=== PATIENT | male | born 1940 | race African-American/Black ===

== ENCOUNTER → 2016-09-25 | Outpatient (CLI) | payer MEDICARE, OTHER | LOC: RAD 14:44 | PROVIDERS: ATTEND Internal Medicine Nephrology | DX: I12.9 Hypertensive chronic kidney disease with stage 1 through stage 4 chronic kidney disease, or unspecified chronic kidney disease (principal); N18.2 Chronic kidney disease, stage 2 (mild); R80.9 Proteinuria, unspecified | CPT/HCPCS: 76770 ==

== ENCOUNTER 2017-03-28 16:26 | Emergency (ER) | payer MEDICARE, OTHER ==
--- NOTE | 2017-03-28 17:32 | RADIOLOGY REPORT (SQ) ---
EXAM DESCRIPTION: TIBIA FIBULA RIGHT COMPLETED DATE/TIME: 03/28/2017 5:21 pm REASON FOR STUDY: pain COMPARISON: None. NUMBER OF VIEWS: Two views. TECHNIQUE: Two radiographic images acquired of the right tibia and fibula to include the knee and an kle in at least one projection. LIMITATIONS: None. FINDINGS: MINERALIZATION: Normal. BONES: No acute fracture or dislocation. No worrisome bone lesions. SOFT TISSUES: There is soft tissue swelling at the ankle laterally. OTHER: There are degenerative changes in the knee. IMPRESSION: Soft tissue swelling laterally at the ankle. Degenerative changes in the knee. No acut e fracture. TECHNICAL DOCUMENTATION: JOB ID: [id number] [employer]- All Rights Reserved
--- NOTE | 2017-03-28 20:54 | ER Document Report ---
ED Medical Screen (RME) - General Chief Complaint: Leg Pain Stated Complaint: RIGHT LEG PAIN Time Seen by Provider: 03/28/17 17:06 Mode of Arrival: Ambulatory Information source: Patient Notes: Patient complains of right lower extremity pain. He states the pain is on the medial aspect of his right lower leg. He denies any injuries or trauma. He states the pain is constant. Nothing makes it better or worse. He denies any type of recent trauma. There is no change with movement. He denies any previous history of DVTs or blood clots. He has had no chest pain or shortness of breath. He has not appreciated any swelling. The pain does radiate up his right leg. It is a sharp pain. TRAVEL OUTSIDE OF THE [place] IN LAST 30 DAYS: No - Related Data Allergies/Adverse Reactions: No Known Allergies Allergy (Verified 03/28/17 16:43) Past Medical History - General Information source: Patient - Social History Frequency of alcohol use: None Drug Abuse: None Family history: Reviewed & Not Pertinent - Past Medical History Cardiac Medical History: Reports: Hx Hypercholesterolemia, Hx Hypertension - meds x 20-30 yrs Endocrine Medical History: Reports: Hx Diabetes Mellitus Type 2 Renal/ Medical History: Denies: Hx Peritoneal Dialysis GI Medical History: Musculoskeltal Medical History: Reports Hx Arthritis - gout only Psychiatric Medical History: Denies: Hx Depression Infectious Medical History: Past Surgical History: Reports: Other - Eye surgery x 2: Retina detachment and Stent for glaucoma - Immunizations Hx Diphtheria, Pertussis, Tetanus Vaccination: Yes Review of Systems - Review of Systems Constitutional: denies: Chills, Fever Cardiovascular: denies: Chest pain, Palpitations Respiratory: denies: Cough, Short of breath Gastrointestinal: denies: Diarrhea, Vomiting -: Yes All other systems reviewed and negative Physical Exam - Vital signs Vitals: Temp Pulse Resp BP Pulse Ox 97.8 F 55 L 20 135/82 H 93 03/28/17 16:43 03/28/17 16:43 03/28/17 16:43 03/28/17 16:43 03/28/17 16:43 Interpretation: Bradycardic - General General appearance: Appears well, Alert - HEENT Head: Normocephalic, Atraumatic Eyes: Normal Pupils: PERRL - Respiratory Respiratory status: No respiratory distress Chest status: Nontender Breath sounds: Normal Chest palpation: Normal - Cardiovascular Rhythm: Regular Heart sounds: Normal auscultation Murmur: No - Abdominal Inspection: Normal Distension: No distension Bowel sounds: Normal Tenderness: Nontender Organomegaly: No organomegaly - Back Back: Normal, Nontender - Extremities General upper extremity: Normal inspection, Nontender, Normal color, Normal ROM , Normal temperature General lower extremity: Normal inspection, Nontender, Normal color, Normal ROM , Normal temperature, Normal weight bearing. No: Henry's sign Notes: Right lower extremity exam is unremarkable. Inspection is unremarkable. Patient has no tenderness to palpation. There is no edema or swelling appreciated. Patient has good popliteal pulse on the right. Temperature is normal. - Neurological Neuro grossly intact: Yes Cognition: Normal Orientation: AAOx4 Dolores Coma Scale Eye Opening: Spontaneous Dolores Coma Scale Verbal: Oriented Dolores Coma Scale Motor: Obeys Commands Phoenix Coma Scale Total: 15 Speech: Normal Motor strength normal: LUE, RUE, LLE, RLE Sensory: Normal - Psychological Associated symptoms: Normal affect, Normal mood - Skin Skin Temperature: Warm Skin Moisture: Dry Skin Color: Normal Course - Vital Signs Vital signs: Temp Pulse Resp BP Pulse Ox 97.8 F 55 L 20 135/82 H 93 03/28/17 16:43 03/28/17 16:43 03/28/17 16:43 03/28/17 16:43 03/28/17 16:43 - Diagnostic Test Radiology reviewed: Image reviewed, Reports reviewed - Patient's x-ray has no evidence of fracture dislocation or lesion. Ultrasound at the time of this dictation is still pending.
--- NOTE | 2017-03-28 21:33 | RADIOLOGY REPORT (SQ) ---
EXAM DESCRIPTION: VENOUS UNILATERAL LOWER COMPLETED DATE/TIME: 03/28/2017 9:25 pm REASON FOR STUDY: pain COMPARISON: None. TECHNIQUE: Dynamic and static traore scale and color images acquired of the right leg venous system. S elected spectral images acquired with additional compression and augmentation maneuvers. The contrala teral common femoral vein and saphenofemoral junction were also imaged. Images stored on PACS. LIMITATIONS: None. FINDINGS: COMMON FEMORAL: Normal phasicity, compression and augmentation. No visualized echogenic ma terial on traore scale. No defects on color images. FEMORAL: Normal compression and augmentation. No visualized echogenic material on traore scale. No defe cts on color images. POPLITEAL: Normal compression, augmentation. No visualized echogenic material on traore scale. No defec ts on color images. CALF VESSELS: Normal compression, augmentation. No visualized echogenic material on traore scale. No de fects on color images. GSV and SSV: Normal compression, augmentation. No visualized echogenic material on traore scale. No def ects on color images. ANY DEEP VENOUS INSUFFICIENCY: Not evaluated. ANY EVIDENCE OF POPLITEAL CYST: No. OTHER: No other significant finding. CONTRALATERAL COMMON FEMORAL VEIN AND SAPHENOFEMORAL JUNCTION: Normal phasicity, compression and augmentation. No visualized echogenic material on traore scale. No de fects on color images. IMPRESSION: NO EVIDENCE DVT OR SVT IN THE RIGHT LEG. TECHNICAL DOCUMENTATION: JOB ID: [id number] [employer]- All Rights Reserved
[2017-03-28] MEDS ORDERED: LIDOCAINE 5% (700 MG) TRANSDERMAL ADH..PATCH TP ONE (21:40)
--- NOTE | 2017-03-28 21:48 | ER Document Report ---
ED General - General Chief Complaint: Leg Pain Stated Complaint: RIGHT LEG PAIN Time Seen by Provider: 03/28/17 17:06 Mode of Arrival: Ambulatory TRAVEL OUTSIDE OF THE [place] IN LAST 30 DAYS: No - HPI Patient complains to provider of: Right calf pain Notes: Patient coming in for right calf pain. Patient states ongoing for the past few days went to local urgent care for to the ER concern for possible DVT. Patient denies any recent travel denies history of DVT in the past. Patient states pain is more in the lateral side of his calf. Denies any recent trauma or new activity. Patient is resting comfortably upon my evaluation. - Related Data Allergies/Adverse Reactions: No Known Allergies Allergy (Verified 03/28/17 16:43) Past Medical History - General Information source: Patient - Social History Smoking Status: Former Smoker Frequency of alcohol use: None Drug Abuse: None Family History: Reviewed & Not Pertinent Patient has suicidal ideation: No Patient has homicidal ideation: No - Past Medical History Cardiac Medical History: Reports: Hx Hypercholesterolemia, Hx Hypertension - meds x 20-30 yrs Endocrine Medical History: Reports: Hx Diabetes Mellitus Type 2 Renal/ Medical History: Denies: Hx Peritoneal Dialysis GI Medical History: Musculoskeltal Medical History: Reports Hx Arthritis - gout only Psychiatric Medical History: Denies: Hx Depression Infectious Medical History: Past Surgical History: Reports: Other - Eye surgery x 2: Retina detachment and Stent for glaucoma - Immunizations Hx Diphtheria, Pertussis, Tetanus Vaccination: Yes Hx Pneumococcal Vaccination: 07/23/08 Review of Systems - Review of Systems Constitutional: No symptoms reported EENT: No symptoms reported Cardiovascular: No symptoms reported Respiratory: No symptoms reported Gastrointestinal: No symptoms reported Genitourinary: No symptoms reported Male Genitourinary: No symptoms reported Musculoskeletal: Other - Calf pain Skin: No symptoms reported Hematologic/Lymphatic: No symptoms reported Neurological/Psychological: No symptoms reported -: Yes All other systems reviewed and negative Physical Exam - Vital signs Vitals: Temp Pulse Resp BP Pulse Ox 97.8 F 55 L 20 135/82 H 93 03/28/17 16:43 03/28/17 16:43 03/28/17 16:43 03/28/17 16:43 03/28/17 16:43 Interpretation: Normal - General General appearance: Appears well, Alert - HEENT Head: Normocephalic, Atraumatic Eyes: Normal Pupils: PERRL - Respiratory Respiratory status: No respiratory distress Chest status: Nontender Breath sounds: Normal Chest palpation: Normal - Cardiovascular Rhythm: Regular Heart sounds: Normal auscultation Murmur: No - Abdominal Inspection: Normal Distension: No distension Bowel sounds: Normal Tenderness: Nontender Organomegaly: No organomegaly - Back Back: Normal, Nontender - Extremities General upper extremity: Normal inspection, Nontender, Normal color, Normal ROM , Normal temperature General lower extremity: Normal inspection, Nontender, Normal color, Normal ROM , Normal temperature, Normal weight bearing. No: Henry's sign - Neurological Neuro grossly intact: Yes Cognition: Normal Orientation: AAOx4 Dolores Coma Scale Eye Opening: Spontaneous Dolores Coma Scale Verbal: Oriented Dolores Coma Scale Motor: Obeys Commands Dolores Coma Scale Total: 15 Speech: Normal Motor strength normal: LUE, RUE, LLE, RLE Sensory: Normal - Psychological Associated symptoms: Normal affect, Normal mood - Skin Skin Temperature: Warm Skin Moisture: Dry Skin Color: Normal Course - Re-evaluation Re-evalutation: 03/28/17 23:31 X-ray and ultrasound are negative for DVT. Patient will be discharged home follow-up primary care physician. - Vital Signs Vital signs: Temp Pulse Resp BP Pulse Ox 97.8 F 56 L 18 169/68 H 95 03/28/17 16:43 03/28/17 22:13 03/28/17 22:13 03/28/17 22:13 03/28/17 22:13 Discharge - Discharge Clinical Impression: Right calf pain Condition: Good Disposition: HOME, SELF-CARE Instructions: Muscle Strain ([facility]) Additional Instructions: Your x-ray and venous Doppler today were negative for fracture or blood clot. He may try the Lidoderm patch for pain control also try Tylenol and Motrin. Follow-up with your primary care physician return to ER symptoms worsen. Referrals: BLANCO ALMARAZ MD [Primary Care Provider] - Follow up as needed
[2017-03-28 22:14] VITALS: BP 169/68
== END 2017-03-28 22:14 | disposition home or self-care (01) ==
LOC: ER 16:26
DX: M79.604 Pain in right leg (principal); Z87.891 Personal history of nicotine dependence
CPT/HCPCS: 93971; 99284

== ENCOUNTER → 2017-11-05 | Outpatient (CLI) | payer MEDICARE, OTHER ==
--- NOTE | 2017-11-06 09:49 | XCELERA REPORT ---
[address] [address] Transthoracic Echocardiogram Report Name: KERI HARRIS Age: 77 yrs Gender: Male : 1940 Patient Status: Outpatient Patient Location: Study Date: 11/05/2017 10:11 AM Height: 69 in Weight: 250 lb BSA: 2.3 m2 Procedure: A complete two-dimensional transthoracic echocardiogram was performed (2D, M-mode, spectral and color flow Doppler). The study was technically difficult with many images being suboptimal in quality. Reason For Study: ATHEROSCLEROTIC HEART DISEASE Ordering Physician: DANIEL LUDWIG Performed By: Alexandra Hayward Interpretation Summary Left ventricular systolic function is low normal. Consider additional methods to assess LVEF such as MUGA scan, CTA heart, cardiac MRI, KEERTHI, etc. if clinically indicated. There is borderline concentric left ventricular hypertrophy. The left ventricle is grossly normal size. Doppler measurements suggest pseudonormalized left ventricular relaxation, which is associated with grade II/IV or mild to moderate diastolic dysfunction Wall motion cannot be accurately commented on, but no definite regional wall motion abnormalities noted. The right ventricle is grossly normal size. There is normal right ventricular wall thickness. The right atrium is normal. Borderline left atrial enlargement. There is a trace to mild amount of mitral regurgitation There is no mitral valve stenosis. There is no aortic valve stenosis There is a mild amount of aortic regurgitation There is a mild amount of tricuspid regurgitation There is mild pulmonary hypertension by echo Right ventricular systolic pressure is estimated to be elevated at 30- 40mmHg. The aortic root is not well visualized but is probably normal size. The inferior vena cava appeared normal and decreased > 50% with respiration (RAP 5-10 mmHg) There is no pericardial effusion. MMode/2D Measurements & Calculations RVDd: 2.7 cm LVIDd: 5.2 cmFS: 36.6 % Ao root diam: 3.0 cm IVSd: 0.96 cm LVIDs: 3.3 cmEDV(Teich): 131.6 ml LVPWd: 1.0 cmESV(Teich): 44.7 ml Ao root area: 7.1 cm2 EF(Teich): 66.0 % LA dimension: 3.4 cm LVOT diam: 2.1 cm LVOT area: 3.6 cm2 Doppler Measurements & Calculations MV E max artemio: MV P1/2t max artemio: Ao V2 max: AI max artemio: 69.4 cm/sec 68.8 cm/sec 135.7 cm/sec 299.8 cm/sec MV A max artemio: MV P1/2t: 65.0 msec Ao max PG: AI max P.1 cm/sec MVA(P1/2t): 3.4 cm2 7.4 mmHg 36.0 mmHg MV E/A: 1.4 MV dec slope: DEL(V,D): 2.9 cm2 AI dec slope: 310.2 cm/sec2 118.8 cm/sec2 AI P1/2t: 739.1 msec LV V1 max PG: PA V2 max: TR max artemio: 4.7 mmHg 69.9 cm/sec 268.6 cm/sec LV V1 max: PA max P.0 mmHg TR max P.0 cm/sec 28.9 mmHg Left Ventricle The left ventricle is grossly normal size. There is borderline concentric left ventricular hypertrophy. Left ventricular systolic function is low normal. Consider additional methods to assess LVEF such as MUGA scan, CTA heart, cardiac MRI, KEERTHI, etc. if clinically indicated. Doppler measurements suggest pseudonormalized left ventricular relaxation, which is associated with grade II/IV or mild to moderate diastolic dysfunction. Wall motion cannot be accurately commented on, but no definite regional wall motion abnormalities noted. Right Ventricle The right ventricle is grossly normal size. There is normal right ventricular wall thickness. The right ventricular systolic function is normal. Atria The right atrium is normal. Borderline left atrial enlargement. Interarterial septum not well visualized and not well dopplered. Cannot comment on ASD/PFO presence. Mitral Valve The mitral valve is grossly normal. There is no mitral valve stenosis. There is a trace to mild amount of mitral regurgitation. Aortic Valve The aortic valve is mildly calcified. The aortic valve is trileaflet. There is no aortic valve stenosis. There is a mild amount of aortic regurgitation. Tricuspid Valve The tricuspid valve is not well visualized secondary to technical limitations. There is no tricuspid stenosis. There is a mild amount of tricuspid regurgitation. There is mild pulmonary hypertension by echo. Right ventricular systolic pressure is estimated to be elevated at 30- 40mmHg. Pulmonic Valve The pulmonic valve is not well visualized. Great Vessels The aortic root is not well visualized but is probably normal size. The inferior vena cava appeared normal and decreased > 50% with respiration (RAP 5-10 mmHg). Effusions There is no pericardial effusion. : DANIEL LUDWIG > Brian Yip
== END ==
LOC: SP 10:00
PROVIDERS: ATTEND Specialist
DX: I25.10 Atherosclerotic heart disease of native coronary artery without angina pectoris (principal)
CPT/HCPCS: 93306

== ENCOUNTER 2018-05-13 01:18 | Emergency (ER) | payer MEDICARE, OTHER ==
[2018-05-13 04:35] LABS: ABSOLUTE BASOPHILS # (AUTO) 0.1 10^3/uL (0.0-0.2); ABSOLUTE EOSINOPHILS # (AUTO) 0.1 10^3/uL (0.0-0.6); ABSOLUTE LYMPHOCYTES (AUTO) 1.3 10^3/uL (0.5-4.7); ABSOLUTE MONOCYTES (AUTO) 1.2 10^3/uL (0.1-1.4); ABSOLUTE NEUT (AUTO) 7.1 10^3/uL (1.7-8.2); BASOPHILS % (AUTO) 0.6 % (0-2); EOSINOPHILS % (AUTO) 0.8 % (0-6); HEMATOCRIT 44.1 % (37.9-51.0); HEMOGLOBIN 14.9 g/dL (13.5-17.0); LYMPHOCYTES % (AUTO) 13.6 % (13-45); MEAN CORPUSCULAR HEMOGLOBIN 31.5 pg (27.0-33.4); MEAN CORPUSCULAR HGB CONC 33.8 g/dL (32.0-36.0); MEAN CORPUSCULAR VOLUME 93 fl (80-97); MONOCYTES % (AUTO) 12.3 % (3-13); PLATELET COUNT 144 10^3/uL (150-450); RED BLOOD COUNT 4.73 10^6/uL (4.35-5.55); RED CELL DISTRIBUTION WIDTH 14.2 % (11.5-14.0); SEGMENTED NEUTROPHILS % (AUTO) 72.7 % (42-78); TOTAL CELLS COUNTED % (AUTO) 100 %; WHITE BLOOD COUNT 9.8 10^3/uL (4.0-10.5)
[2018-05-13 04:48] LABS: ALANINE AMINOTRANSFERASE 22 U/L (21-72); ALBUMIN 3.8 g/dL (3.5-5.0); ALKALINE PHOSPHATASE 145 U/L (38-126); ANION GAP 11 (5-19); ASPARTATE AMINO TRANSFERASE 19 U/L (17-59); BILIRUBIN,DIRECT 0.2 mg/dL (0.0-0.4); BILIRUBIN,TOTAL 0.7 mg/dL (0.2-1.3); BLOOD UREA NITROGEN 20 mg/dL (7-20); CALCIUM 9.6 mg/dL (8.4-10.2); CARBON DIOXIDE 25 mmol/L (22-30); CHLORIDE 105 mmol/L (98-107); GLUCOSE 117 mg/dL (75-110); POTASSIUM 4.4 mmol/L (3.6-5.0); SODIUM 140.7 mmol/L (137-145); TOTAL PROTEIN 7.1 g/dL (6.3-8.2)
--- NOTE | 2018-05-13 05:12 | ER Document Report ---
ED GI/ - General Chief Complaint: Abdominal Pain Stated Complaint: ABDOMINAL PAIN Time Seen by Provider: 05/13/18 02:48 Notes: Patient is a 78-year-old male presenting to the emergency department complaining of generalized abdominal pain started tonight. Patient states pain is mostly around his umbilical region. Patient states he had 2 episodes of diarrhea denying any blood. Patient denies vomiting, fever, dysuria, testicular swelling, penile discharge, chest pain, shortness of breath, URI symptoms. Past medical history: Diabetes, hypertension, gout, hyperlipidemia, TIA, chronic kidney disease Medications: Metformin, tamsulosin, metoprolol, allopurinol, enalapril, atorvastatin Allergies: None surgical history: Cataract Patient's primary care provider is Dr. Rodriguez TRAVEL OUTSIDE OF THE [place] IN LAST 30 DAYS: No - Related Data Allergies/Adverse Reactions: No Known Allergies Allergy (Verified 03/28/17 16:43) Past Medical History - General Information source: Patient - Social History Smoking Status: Never Smoker Lives with: Family Family History: Reviewed & Not Pertinent Patient has suicidal ideation: No Patient has homicidal ideation: No - Past Medical History Cardiac Medical History: Reports: Hx Hypercholesterolemia, Hx Hypertension - meds x 20-30 yrs Endocrine Medical History: Reports: Hx Diabetes Mellitus Type 2 Renal/ Medical History: Denies: Hx Peritoneal Dialysis GI Medical History: Musculoskeletal Medical History: Reports Hx Arthritis - gout only Psychiatric Medical History: Denies: Hx Depression Infectious Medical History: Past Surgical History: Reports: Other - Eye surgery x 2: Retina detachment and Stent for glaucoma - Immunizations Hx Diphtheria, Pertussis, Tetanus Vaccination: Yes Hx Pneumococcal Vaccination: 07/23/08 Review of Systems - Review of Systems Constitutional: See HPI EENT: See HPI Cardiovascular: See HPI Respiratory: See HPI Gastrointestinal: See HPI Genitourinary: See HPI Male Genitourinary: See HPI Musculoskeletal: See HPI Skin: No symptoms reported Hematologic/Lymphatic: No symptoms reported Neurological/Psychological: No symptoms reported Physical Exam - Vital signs Vitals: Temp Pulse Resp BP Pulse Ox 97.7 F 60 18 154/73 H 98 05/13/18 01:22 05/13/18 01:22 05/13/18 01:22 05/13/18 01:22 05/13/18 01:22 - Notes Notes: GENERAL: Alert, interacts well. No acute distress. HEAD: Normocephalic, atraumatic. ENT: Oral mucosa moist, tongue midline. NECK: Full range of motion. Supple. Trachea midline. LUNGS: Clear to auscultation bilaterally, no wheezes, rales, or rhonchi. No respiratory distress. HEART: Regular rate and rhythm. No murmur ABDOMEN: Soft, generalized tenderness umbilical region, non-distended. Bowel sounds present in all 4 quadrants. Negative Metz sign, no McBurney's point tenderness. EXTREMITIES: Moves all 4 extremities spontaneously. No edema, normal radial and dorsalis pedis pulses bilaterally. No cyanosis. BACK: no cervical, thoracic, lumbar midline tenderness. No saddle anesthesia, normal distal neurovascular exam. NEUROLOGICAL: Alert and oriented x3. Normal speech. cranial nerves II through XII grossly intact. PSYCH: Normal affect, normal mood. SKIN: Warm, dry, normal turgor. No rashes or lesions noted. Course - Re-evaluation Re-evalutation: 05/13/18 05:13 After labs are reviewed nurse states patient no longer has abdominal pain. Nurse states patient wishes to refuse CT. Discussed abdominal pain with patient who continues to deny any pain. States the pain has since resolved. No signs of leukocytosis on his blood work, will discharge. Discussed with patient close return precautions. - Vital Signs Vital signs: Temp Pulse Resp BP Pulse Ox 98.7 F 76 18 119/59 L 96 05/13/18 06:17 05/13/18 06:17 05/13/18 06:17 05/13/18 06:17 05/13/18 06:17 - Laboratory Result Diagrams: 05/13/18 04:20 05/13/18 04:20 Laboratory results interpreted by me: 05/13/18 05/13/18 04:20 04:20 RDW 14.2 H Plt Count 144 L Est GFR (Non-Af Amer) 57 L Glucose 117 H Alkaline Phosphatase 145 H Discharge - Discharge Clinical Impression: Abdominal pain Qualifiers: Abdominal location: periumbilical Qualified Code(s): R10.33 - Periumbilical pain Diarrhea Qualifiers: Diarrhea type: unspecified type Qualified Code(s): R19.7 - Diarrhea, unspecified Condition: Stable Disposition: HOME, SELF-CARE Instructions: Abdominal Pain ([facility]) Additional Instructions: As we discussed you have been seen and treated in the emergency department for abdominal pain. You should return to the emergency room if your abdominal pain returns. Please make an appointment with your primary care provider in the next 24-48 hours for follow-up. Return to the emergency room for any other concerning symptoms. Referrals: DANIEL LUDWIG MD [Primary Care Provider] - Follow up as needed
[2018-05-13 05:33] LABS: APPEARANCE,URINE CLEAR; BILIRUBIN,URINE NEGATIVE (NEGATIVE); COLOR,URINE YELLOW; GLUCOSE, URINE NEGATIVE (NEGATIVE); KETONES,URINE NEGATIVE (NEGATIVE); LEUKOCYTE ESTERASE,URINE NEGATIVE (NEGATIVE); NITRITE,URINE NEGATIVE (NEGATIVE); PROTEIN,URINE NEGATIVE (NEGATIVE); URINE SPECIFIC GRAVITY 1.014; UROBILINOGEN,URINE NEGATIVE mg/dL (<2.0)
[2018-05-13 06:24] VITALS: BP 119/59
== END 2018-05-13 06:20 | disposition home or self-care (01) ==
LOC: ER 01:18
DX: R10.33 Periumbilical pain (principal); R19.7 Diarrhea, unspecified; R10.84 Generalized abdominal pain; E78.00 Pure hypercholesterolemia, unspecified; I10 Essential (primary) hypertension; E11.9 Type 2 diabetes mellitus without complications
CPT/HCPCS: 36415; 80053; 81001; 83690; 85025; 99284

== ENCOUNTER → 2018-08-07 | Outpatient (CLI) | payer MEDICARE, OTHER ==
[~2018-08-07] MED LIST: REGADENOSON INJ 0.4 MG/5 ML DISP.SYRIN IV ONE
--- NOTE | 2018-08-09 23:16 | NON-INVASIVE CARDIOLOGY (SQ) ---
Intravenous Lexiscan Cardiolite stress test using single photon emmision computerized tomography. Date of procedure: 08/07/2018.Ordering Provider: Dr. Gael Bell.Patient's status: Out Patient. Indication: Coronary artery disease, history of non-ST elevation NM in the past, with placement of a stent in unknown vessel in the coronary artery system. Coronary risk factors: Age, diabetes mellitus, hypertension, and dyslipidemia. Resting EKG: Sinus Rhythm. Nonspecific ST-T changes in the lateral leads. Stress EKG: No changes of ischemia. The patient had no chest pain or discomfort, and there were no arrhythmias seen. Reason for termination: Protocol. Conclusions: Normal EKG and hemodynamic response to IV Lexiscan. Nuclear data: At rest the patient was given 16.12 millicuries of technetium 99m sestamibi injected intravenously. As per protocol rest non gated SPECT images were obtained. Subsequently the patient was given intravenous Lexiscan at a dose of 0.4 mg in 5 mL intravenously, followed by flush with normal saline. Subsequently the stress dose of 48.2 millicuries of technetium 99m sestamibi was injected intravenously. As per protocol stress gated images were obtained. Nuclear interpretation: Review of images showed that there is severe motion artifact, hence this is a difficult study to empty.. There is a small area of perfusion defect involving the left ventricle apex in both the rest and stress images. This small area has diminished motion contraction and thickening by gated study. And this probably represents a small prior myocardial infarction. The rest of the segments of the myocardium had normal perfusion at rest, and normal perfusion post stress with IV Lexiscan. The rest of the segments of the myocardium had normal motion, contraction, and thickening by gated study. T. I D. ratio was normal at 0.91. There is no transient ischemic dilatation of the left ventricle. Computer read rest, and stress left ventricular ejection fraction were 45 %, and 45 %, respectively. Visually both the stress and rest ejection fractions were normal, and greater than 55%. Conclusion: 1. There is no scintigraphic evidence of Lexiscan induced myocardial ischemia. 2. There is scintigraphic evidence of myocardial infarction/scar involving a small area in the LV apex.. Recommendations: 1. Correlate clinically. 2.Aggressive risk factor modification, and treating the underlying co- morbidities. [facility] AREA HOSPITALMelody
== END ==
LOC: RAD 08:35
PROVIDERS: ATTEND Internal Medicine Cardiovascular Disease
DX: I25.10 Atherosclerotic heart disease of native coronary artery without angina pectoris (principal); I10 Essential (primary) hypertension; E78.5 Hyperlipidemia, unspecified; E11.9 Type 2 diabetes mellitus without complications; I25.2 Old myocardial infarction
CPT/HCPCS: 93017; 78452; A9500; J2785; Q9969

== ENCOUNTER → 2018-10-17 | Outpatient (CLI) | payer MEDICARE, OTHER ==
--- NOTE | 2018-10-17 13:46 | RADIOLOGY REPORT (SQ) ---
EXAM DESCRIPTION: CHEST PA/LATERAL COMPLETED DATE/TIME: 10/17/2018 1:35 pm REASON FOR STUDY: COUGH COMPARISON: 07/06/2016, 06/15/2015 chest films EXAM PARAMETERS: NUMBER OF VIEWS: two views TECHNIQUE: Digital Frontal and Lateral radiographic views of the chest acquired. RADIATION DOSE: NA LIMITATIONS: none FINDINGS: LUNGS AND PLEURA: No opacities, masses or pneumothorax. No pleural effusion. MEDIASTINUM AND HILAR STRUCTURES: Calcified right hilar lymph nodes and right paratracheal lymph node unchanged. HEART AND VASCULAR STRUCTURES: Heart normal size. No evidence for failure. BONES: No acute findings. HARDWARE: None in the chest. OTHER: No other significant finding. IMPRESSION: NO SIGNIFICANT RADIOGRAPHIC FINDING IN THE CHEST. TECHNICAL DOCUMENTATION: JOB ID: [id number] [employer]- All Rights Reserved Reading location - IP/workstation name: [email or web address]
== END ==
LOC: OD 13:23
PROVIDERS: ATTEND Family Medicine
DX: R05 Cough (principal)
CPT/HCPCS: 71046